=== PATIENT | female | born 1980 | race Caucasian/White ===

== ENCOUNTER → 2016-04-16 | Day surgery (SDC) | payer OTHER ==
[~2016-04-16] MED LIST: BUPIVACAINE HCL PF 0.5% 30 ML VIAL ONE; KETOROLAC TROMETHAMINE 30 MG/ML (IVP) VIAL IV PUSH ONE; LACTATED RINGER'S 1000 ML INJ 1,000 ML ONE; ONDANSETRON HCL 4 MG/2 ML VIAL IV PUSH ONE; PROPOFOL 200 MG/20 ML AMP IV ONE; ceFAZolin INJ 1,000 MG VIAL ONE
--- NOTE | 2016-04-18 10:05 | MP ---
cc: OZIEL PEREZ M.D. DATE OF SURGERY 04/16/2016 PREOPERATIVE DIAGNOSES 1. Elective sterilization. Completed childbearing. 2. Removal of IUD. POSTOPERATIVE DIAGNOSES 1. Elective sterilization. Completed childbearing. 2. Removal of IUD. PROCEDURE 1. Laparoscopy with bilateral tubal ligation using Kleppinger technique. 2. Removal of IUD. 3. Exam under anesthesia. SURGEON MD Dinh ANESTHESIA General LMA. ESTIMATED BLOOD LOSS None. DRAINS None. OPERATIVE FINDINGS The patient had normal pelvic anatomy. The fallopian tubes and ovaries were symmetrical, without any focal abnormality. The uterus is retroverted but otherwise normal size and shape. Good support was noted. INDICATION FOR PROCEDURE The patient completed childbearing, desired removal of IUD with sterilization. Consent was signed. The patient received Ancef 1 gram prophylactically. PROCEDURE DESCRIPTION The patient was taken to the operating room in stable condition, underwent general anesthesia with LMA placement, carefully positioned in dorsal lithotomy position using Abiel stirrups. On her lower extremities she had sequentials placed for VTE prophylaxis. She had appropriate padding where needed. Careful manipulation of the lower extremities was accomplished without difficulty. After she was prepped and draped, time-out was conducted and agreed by all present in the room. This was followed by use of a red Daigle catheter to drain the bladder of about 10 cc of clear urine. A simple bivalve speculum was used to examine the cervix which was easily visualized. The IUD string was grasped with a ring clamp and retrieved without complication, sent for pathology. The cervix was attached with a Hulka tenaculum for manipulation, the retractor was removed, gloves were changed. The abdomen was examined. Previous abdominoplasty scars were well-healed. The umbilical port site was injected with about 3 cc of 0.25% plain Marcaine. A small stab wound was made through the skin and the 5-mm visible port trocar was inserted into peritoneal cavity without complication. A suprapubic port was then placed under direct vision as well using a 5-mm trocar. The Kleppinger was introduced after the patient was placed in Trendelenburg positioning and electrodesiccation of each fallopian tube was accomplished without difficulty. This was started from the cornual portion of the tube and then brought laterally to the distal anterior portion. No complication was incurred. Good result was noted. At the completion of the case the pneumoperitoneum was decompressed through the trocars. The trocar sites were intact. After removal of the trocars, the incisions were closed with subcuticular suture of 4-0 Monocryl. Steri-Strips and Band-Aids placed over the incision. The Hulka tenaculum was removed from the cervix without any active bleeding. At the completion of case the patient was stable, full count was made and correct. She was taken to the recovery room and extubated on room air. Oziel Perez MD SJJoanne/SSB /8:28 AM /9:56 AM
== END | disposition home or self-care (01) ==
LOC: ESDC 06:49
PROVIDERS: ATTEND Obstetrics & Gynecology
DX: Z30.2 Encounter for sterilization (principal)
CPT/HCPCS: 00851; 58301; 58670; 88305; J0690; J1885; J2405; J3010; J7120; 88300